=== PATIENT | male | born 1955 | race Caucasian/White ===

== ENCOUNTER 2017-03-05 21:17 | Inpatient (IN) | payer MEDICARE, OTHER ==
--- NOTE | ~2017-03-05 | DS ---
Discharge Summary [address] [address] NAME: NICO SINHA : 55 STATUS : DIS IN PAT#: [id number] AGE: 61 ADM/REG DATE : 03/05/17 MR#: [id number] REPORT SERV DATE: 03/09/17 DICTATED BY: KARISSA CARTER DATE: 03/08/17 REPORT STATUS : Draft TRANSCRIBED BY: MODL DATE: 03/08/17 ADMISSION DATE: 03/05/2017 DISCHARGE DATE: 03/08/2017 DISCHARGE DIAGNOSES: 1. Choledocholithiasis. 2. Possible cholangitis. 3. Uncontrolled hypertension. 4. Type 2 diabetes, new diagnosis with hemoglobin A1c of 6.8. 5. Chronic obstructive pulmonary disease. 6. Tobacco abuse. 7. Sleep apnea. 8. Distal left ureteral enhancing mass on CT scan with history of bladder cancer. 9. Schizophrenia and bipolar disorder, currently not on medical treatment with previous cognitive behavioral therapy. Symptoms controlled. 10.History of renal stones. 11.Goiter on CT. OPERATIONS AND PROCEDURES: ERCP, Dr. Cook 03/07/2017. PRESENT ILLNESS: This is a 61-year-old white male who was evaluated at [facility] the day of admission with epigastric pain after eating. His evaluation included a CT scan of the chest, abdomen, and pelvis. His chest CT did not show pulmonary emboli, aortic aneurysm, or dissection. Atherosclerotic disease was noted in the aorta and an enlarged thyroid gland was noted in the superior mediastinum. There was diffuse parenchymal emphysema. CT abdomen and pelvis demonstrated choledocholithiasis, nonobstructing left renal stones, and an abnormality in his distal left ureter. He was referred here for further evaluation. He was seen by Dr. Kade Shafer and admitted as described on admission history and physical examination. ADDITIONAL HISTORY: Per Dr. Shafer. PHYSICAL EXAMINATION: Per Dr. Shafer. ADMISSION LABORATORY: Per Dr. Shafer. HOSPITAL COURSE: He was admitted as described. He was given p.r.n. medications for blood pressure control. He was given p.r.n. medications for pain and nausea control. He was placed n.p.o. GI consultation was obtained. His hospitalist care was assumed by the undersigned. Surgical consultation was obtained, Discharge Summary [address] [address] NAME: NICO SINHA : 55 STATUS : DIS IN PAT#: [id number] AGE: 61 ADM/REG DATE : 03/05/17 MR#: [id number] REPORT SERV DATE: 03/09/17 DICTATED BY: KARISSA CARTER DATE: 03/08/17 REPORT STATUS : Draft TRANSCRIBED BY: MODL DATE: 03/08/17 and he was seen by Dr. Edouard. Antimicrobial therapy was initiated for possible cholangitis with his presentation. On 03/07/2017, he was taken to the GI lab by Dr. Cook where he underwent an ERCP. Findings were mildly dilated biliary system. There were multiple stones removed after sphincterotomy with balloon. There were no complications with this procedure and post procedure, he had no nausea, vomiting, and tolerated liquids well. His diet was advanced without symptoms. Dr. Edouard reviewed his studies. He recommended a cholecystectomy. It was felt this could be delayed per the patient's request. He was also seen by Dr. Bubba Coburn because of the left ureteral mass. Dr. Coburn felt he should have cysto, left RPG, and TURBT with possible need for distal ureterectomy. This will be followed up by Dr. Coburn in the outpatient setting. When seen by the undersigned on 03/08/2017, he was basically asymptomatic. There were no new findings on exam. His laboratory studies were reviewed. His bilirubin had fallen from 2.6 on 01/07/2017 to 1.2. Alkaline phosphatase 208 to 175, ALT 165 to 145, AST 135 to 88, and his lipase remained normal at 132 and 130. A hepatitis profile for A, B, and C was nonreactive, and his white count was normal at 7.8 and hemoglobin of 14.1. At this point in his hospitalization, it was felt he had achieved a level of improvement and stability where he could be safely discharged home to be seen in the outpatient setting by Dr. Edouard, Dr. Coburn, and his primary care physician, Sarah. He was asked to see Dr. Smith within the next week. He was asked to follow a low fat diet. Additional issues during his hospitalization included hypertension with systolic blood pressures as high as 211. Norvasc was initiated, and he will likely need additional antihypertensive therapy on followup. He also had some rhonchi and wheezing, which resolved with bronchodilator therapy. He did not smoke while hospitalized with the aid of a nicotine patch, which he plans to continue in the outpatient setting. DISCHARGE MEDICATIONS: Pending outpatient followup, Norvasc 5 mg twice daily, Habitrol patch 7 mg daily. Discharge time greater than 30 minutes. DD/MODL Discharge Summary [address] [address] NAME: NICO SINHA : 55 STATUS : DIS IN PAT#: [id number] AGE: 61 ADM/REG DATE : 03/05/17 MR#: [id number] REPORT SERV DATE: 03/09/17 DICTATED BY: KARISSA CARTER DATE: 03/08/17 REPORT STATUS : Draft TRANSCRIBED BY: JOSEFA DATE: 03/08/17 Karissa Carter M.D. / [id number] CC: Karissa Carter M.D. Roberto Wray M.D. William Young Jr., M.D. Kade Shafer M.D.
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
--- NOTE | ~2017-03-05 | OP ---
Record Of Operation [facility] [address] [place]. [address] NAME: NICO SINHA : 55 STATUS : ADM IN [facility]#: [id number] AGE: 61 ADM/REG DATE : 03/05/17 MR#: [id number] REPORT SERV DATE: 03/08/17 DICTATED BY: TREVER COOK III DATE: 03/07/17 REPORT STATUS : Draft TRANSCRIBED BY: MODL DATE: 03/07/17 DATE OF PROCEDURE: SURGEON: Trever Cook M.D. PROCEDURE: ERCP. ANESTHESIA: General anesthesia. DESCRIPTION OF PROCEDURE: After consent was obtained, the risks and benefits were explained to the patient. The patient was electively intubated and placed in the prone position through the use of a wedge on the fluoroscopy table in room 3 of the GI lab. A therapeutic duodenoscope was advanced blindly into the esophagus and down into the stomach through the pylorus and down the second portion of the duodenum. The papilla appeared normal. Cholangiogram noted a common channel, and there was a partial pancreatogram to the neck, but attempts to opacify were neither intended nor attempted. The bile duct had multiple filling defects and it was mildly dilated to 13 mm. A sphincterotomy was then performed. A lot of edema. The balloons were removed through the use of a 12-9 mm balloon. They were all calcified. Occlusion cholangiogram demonstrated no further stones. The air was suctioned. Scope was removed. ASSESSMENT: 1. Mildly dilated biliary system. 2. Multiple stones removed after sphincterotomy with balloon. ERI/JOSEFA Trever Cook III, M.D. / [id number] CC: Roberto Kyle M.D.
--- NOTE | ~2017-03-05 | CN ---
Consultation Report [facility] [address] [place]. [address] NAME: NICO SINHA : 55 STATUS : DIS IN PAT#: [id number] AGE: 61 ADM/REG DATE : 03/05/17 MR#: [id number] REPORT SERV DATE: 03/18/17 DICTATED BY: TREVER COOK III DATE: 03/06/17 REPORT STATUS : Draft TRANSCRIBED BY: JOSEFA DATE: 03/06/17 CONSULTATION DATE OF CONSULTATION: HISTORY OF PRESENT ILLNESS: Mr. Sinha is a 61-year-old white male, who is transferred from [facility] for evaluation of abdominal pain and abnormal CT scan. The patient had been doing fairly well, but he started developing some sternal pain and upper epigastric pain. He tried different things to try to getting feeling better, but he was concerned that it continued. No nausea, vomiting. He went to [facility]. They did a CT scan, and it showed that he had bile duct stones. His liver tests were mildly abnormal. [place] [address] and the evaluation was unremarkable for any heart problems. He was sent here for evaluation of gallstones. PAST MEDICAL HISTORY: Bladder cancer. PAST SURGICAL HISTORY: Ankle surgery, bladder cancer surgery. MEDICATIONS: None. ALLERGIES: PENICILLIN AND ASPIRIN. FAMILY HISTORY: Stroke, kidney disease, TB. SOCIAL HISTORY: He smokes. Denies alcohol. PHYSICAL EXAMINATION: GENERAL: A well-developed, well-nourished, white male with tattoos. HEENT: Atraumatic, normocephalic. Sclerae anicteric. Oropharynx is clean. CHEST: Clear to auscultation. CV: S1 and S2. ABDOMEN: Mildly protuberant, tattoos. LABORATORIES: Bilirubin 2.2. LFTs mildly elevated. White count 92790, hemoglobin 15.8. Sugar 136, alkaline phosphatase 158, ALT 129, AST 135. ASSESSMENT AND PLAN: 1. Abdominal pain with abnormal CT scan as noted, the patient with acute onset of abdominal pain with mildly elevated liver tests with an abnormal CT scan. We just have the report. It has not been officially read here. He reports, he has never had his gallbladder taken out. As such, we will do the following:. a. Review CT scan. b. Anticipate ERCP in the morning. c. Continue antibiotics. d. We will base any further needs on any other treatment based on his Consultation Report [place] [id number] [place] [address] NAME: NICO SINHA : 55 STATUS : DIS IN PAT#: [id number] AGE: 61 ADM/REG DATE : 03/05/17 MR#: [id number] REPORT SERV DATE: 03/18/17 DICTATED BY: TREVER COOK III DATE: 03/06/17 REPORT STATUS : Draft TRANSCRIBED BY: JOSEFA DATE: 03/06/17 response. ERI/JOSEFA Trever Cook III, M.D. / [id number] CC: Roberto Kyle M.D.
[2017-03-06 02:37] LABS: CPK 75 U/L (0-200); TROPONIN I <0.02 NG/ML (<0.05); ULTRASENSITIVE TSH 0.994 MCIU/ML (0.358-3.740)
[2017-03-06 02:42] LABS: CK-MB 1.6 NG/ML
[2017-03-06 08:46] LABS: BASOPHILS 0.2 %; BASOPHILS ABSOLUTE 0.02 10/3/uL (0.0-0.16); EOSINOPHILS 0.7 %; EOSINOPHILS ABSOLUTE 0.07 10/3/uL (0.0-0.53); HEMATOCRIT 46.2 % (40.0-51.0); HEMOGLOBIN 15.8 g/dL (13.6-17.8); IMMATURE GRANULOCYTES 0.2 %; IMMATURE GRANULOCYTES ABSOLUTE 0.02 10/3/uL (0.0-0.11); LYMPHOCYTES 13.8 %; LYMPHOCYTES ABSOLUTE 1.37 10/3/uL (0.67-4.30); MEAN CORPUS HGB CONC 34.2 g/dL (32.0-36.0); MEAN CORPUSCULAR HEMOGLOB 30.9 pg (26.0-34.0); MEAN CORPUSCULAR VOLUME 90.2 fL (80-100); MEAN PLATELET VOLUME 10.4 fL (9.2-13.0); MONOCYTES 7.3 %; MONOCYTES ABSOLUTE 0.73 10/3/uL (0.21-1.20); NEUTROPHILS 77.8 %; NEUTROPHILS ABSOLUTE 7.74 10/3/uL (2.02-8.40); PLATELET COUNT 208 10/3/uL (150-400); RBC DISTRIBUTION WIDTH 14.2 % (12.0-16.0); RED CELL COUNT 5.12 10/6/uL (4.7-6.1)
[2017-03-06 08:50] LABS: MANUAL DIFF NO %
[2017-03-06 09:03] LABS: A/G RATIO 0.8 (0.7-1.9); ALBUMIN 3.2 G/DL (3.5-5.0); ALKALINE PHOSPHATASE 158 U/L (45-117); BUN (BLOOD UREA NITROGEN) 8 MG/DL (6-23); CALCIUM, SERUM 9.6 MG/DL (8.5-10.4); CHLORIDE, SERUM 104 MMOL/L (96-112); CK-MB 1.5 NG/ML; CO2 (CARBON DIOXIDE) 27 MMOL/L (24-34); CPK 74 U/L (0-200); CREATININE 0.76 MG/DL (0.70-1.30); GFR AFRICAN AMERICAN 114 ML/MIN (>=60); GFR NON AFRICAN AMERICAN 98 ML/MIN (>=60); GLOBULIN 3.9 G/DL (2.5-4.1); GLUCOSE, SERUM 136 MG/DL (60-99); POTASSIUM, SERUM 3.8 MMOL/L (3.5-5.3); SGOT(AST) 135 U/L (5-40); SGPT(ALT) 129 U/L (5-65); SODIUM, SERUM 139 MMOL/L (135-148); TOTAL BILIRUBIN 2.2 MG/DL (0-1.2); TOTAL PROTEIN 7.1 G/DL (6.0-8.5); TROPONIN I <0.02 NG/ML (<0.05)
[2017-03-06] MEDS ORDERED: *DENIES (10:36)
[2017-03-07 06:49] LABS: BASOPHILS 0.2 %; BASOPHILS ABSOLUTE 0.02 10/3/uL (0.0-0.16); EOSINOPHILS 1.2 %; HEMOGLOBIN 15.8 g/dL (13.6-17.8); IMMATURE GRANULOCYTES 0.2 %; IMMATURE GRANULOCYTES ABSOLUTE 0.02 10/3/uL (0.0-0.11); LYMPHOCYTES 17.8 %; LYMPHOCYTES ABSOLUTE 1.46 10/3/uL (0.67-4.30); MANUAL DIFF NO %; MEAN CORPUS HGB CONC 34.3 g/dL (32.0-36.0); MEAN CORPUSCULAR HEMOGLOB 31.2 pg (26.0-34.0); MEAN CORPUSCULAR VOLUME 90.7 fL (80-100); MEAN PLATELET VOLUME 10.7 fL (9.2-13.0); MONOCYTES 7.9 %; MONOCYTES ABSOLUTE 0.65 10/3/uL (0.21-1.20); NEUTROPHILS 72.7 %; NEUTROPHILS ABSOLUTE 5.93 10/3/uL (2.02-8.40); PLATELET COUNT 199 10/3/uL (150-400); RBC DISTRIBUTION WIDTH 14.8 % (12.0-16.0); RED CELL COUNT 5.07 10/6/uL (4.7-6.1); WHITE BLOOD CELLS 8.2 10/3/uL (4.5-10.5)
[2017-03-07 06:55] LABS: INTERNATIONAL NORMAL RATI 1.1 UNITS (-)
[2017-03-07 07:02] LABS: A/G RATIO 0.8 (0.7-1.9); ALBUMIN 3.2 G/DL (3.5-5.0); ALKALINE PHOSPHATASE 208 U/L (45-117); BUN (BLOOD UREA NITROGEN) 7 MG/DL (6-23); CALCIUM, SERUM 10.1 MG/DL (8.5-10.4); CHLORIDE, SERUM 108 MMOL/L (96-112); CO2 (CARBON DIOXIDE) 22 MMOL/L (24-34); CREATININE 0.74 MG/DL (0.70-1.30); GAMMA GT 836 U/L (5-85); GFR AFRICAN AMERICAN 115 ML/MIN (>=60); GFR NON AFRICAN AMERICAN 100 ML/MIN (>=60); GLOBULIN 3.9 G/DL (2.5-4.1); GLUCOSE, SERUM 113 MG/DL (60-99); POTASSIUM, SERUM 4.1 MMOL/L (3.5-5.3); SGOT(AST) 135 U/L (5-40); SGPT(ALT) 165 U/L (5-65); SODIUM, SERUM 140 MMOL/L (135-148); TOTAL BILIRUBIN 2.6 MG/DL (0-1.2); TOTAL PROTEIN 7.1 G/DL (6.0-8.5); TROPONIN I 0.02 NG/ML (<0.05)
[2017-03-08 03:16] LABS: ASCORBIC ACID (UR NOT ORDER) NEG (NEG); BILIRUBIN, URINE NEGATIVE (NEG); KETONE, URINE NEGATIVE (NEG); LEUKOCYTE ESTERASE(NOT OR NEG (NEG); WBC (NOT ORDERED) (RFLEX) 1 (0-5)
[2017-03-08 05:39] LABS: BASOPHILS 0.1 %; BASOPHILS ABSOLUTE 0.01 10/3/uL (0.0-0.16); EOSINOPHILS 1.3 %; HEMATOCRIT 42.4 % (40.0-51.0); HEMOGLOBIN 14.1 g/dL (13.6-17.8); IMMATURE GRANULOCYTES 0.3 %; IMMATURE GRANULOCYTES ABSOLUTE 0.02 10/3/uL (0.0-0.11); LYMPHOCYTES 16.9 %; LYMPHOCYTES ABSOLUTE 1.32 10/3/uL (0.67-4.30); MEAN CORPUS HGB CONC 33.3 g/dL (32.0-36.0); MEAN CORPUSCULAR HEMOGLOB 30.4 pg (26.0-34.0); MEAN CORPUSCULAR VOLUME 91.4 fL (80-100); MEAN PLATELET VOLUME 10.4 fL (9.2-13.0); MONOCYTES 7.9 %; MONOCYTES ABSOLUTE 0.62 10/3/uL (0.21-1.20); NEUTROPHILS 73.5 %; NEUTROPHILS ABSOLUTE 5.75 10/3/uL (2.02-8.40); PLATELET COUNT 188 10/3/uL (150-400); RED CELL COUNT 4.64 10/6/uL (4.7-6.1); WHITE BLOOD CELLS 7.8 10/3/uL (4.5-10.5)
[2017-03-08 05:43] LABS: MANUAL DIFF NO %
[2017-03-08 05:47] LABS: A/G RATIO 0.9 (0.7-1.9); BUN (BLOOD UREA NITROGEN) 8 MG/DL (6-23); CALCIUM, SERUM 9.4 MG/DL (8.5-10.4); CHLORIDE, SERUM 106 MMOL/L (96-112); CO2 (CARBON DIOXIDE) 23 MMOL/L (24-34); CREATININE 0.83 MG/DL (0.70-1.30); GFR AFRICAN AMERICAN 110 ML/MIN (>=60); GFR NON AFRICAN AMERICAN 95 ML/MIN (>=60); GLOBULIN 3.5 G/DL (2.5-4.1); GLUCOSE, SERUM 121 MG/DL (60-99); POTASSIUM, SERUM 3.4 MMOL/L (3.5-5.3); SGOT(AST) 88 U/L (5-40); SGPT(ALT) 145 U/L (5-65); SODIUM, SERUM 140 MMOL/L (135-148); TOTAL PROTEIN 6.5 G/DL (6.0-8.5)
[2017-03-08 05:58] LABS: ALKALINE PHOSPHATASE 175 U/L (45-117); TOTAL BILIRUBIN 1.2 MG/DL (0-1.2)
[2017-03-08 11:48] LABS: HEPATITIS B SURFACE ANTIGEN NON-REACTIVE (NON-REACT)
[2017-03-08 12:14] LABS: HEPATITIS C ANTIBODY NON-REACTIVE (NON-REACT)
[2017-03-08 12:15] LABS: HEPATITIS B CORE AB IGM NON-REACTIVE (NON-REAC)
[2017-03-08 12:16] LABS: HEP A ANTIBODY IGM NON-REACTIVE (NON-REACT)
[2017-03-08] MEDS ORDERED: NORV5 PO (15:16)
[2017-03-08] MEDS ORDERED: HABIT7 TOP (15:17)
[2017-03-19] MEDS ORDERED: T PO (17:13)
[2017-03-31] MEDS ORDERED: PREV30 PO (16:22)
[2017-03-31] MEDS ORDERED: ZESTRIL20 MG PO (16:22)
[2017-03-31] MEDS ORDERED: GLUCOTROL5 PO (16:23)
[2017-03-31] MEDS ORDERED: VENTOLIN HFA INH (16:40)
[2017-04-02] MEDS ORDERED: PRAVAC PO (15:55)
== END 2017-03-08 15:55 | disposition home or self-care (01) | DRG 445 ==
LOC: 6NO 21:17
PROVIDERS: Internal Medicine; Internal Medicine Gastroenterology; Nurse Practitioner Family
PROC: 0FC98ZZ Extirpation of Matter from Common Bile Duct, Via Natural or Artificial Opening Endoscopic (ICD-10-PCS; principal; 2017-03-07 10:27)
PROC: 0F798ZZ Dilation of Common Bile Duct, Via Natural or Artificial Opening Endoscopic (ICD-10-PCS; 2017-03-07 10:27)
DX: K80.30 Calculus of bile duct with cholangitis, unspecified, without obstruction (principal); F20.9 Schizophrenia, unspecified; I10 Essential (primary) hypertension; F17.210 Nicotine dependence, cigarettes, uncomplicated; E11.9 Type 2 diabetes mellitus without complications; J44.9 Chronic obstructive pulmonary disease, unspecified; I70.0 Atherosclerosis of aorta; G47.33 Obstructive sleep apnea (adult) (pediatric); E04.9 Nontoxic goiter, unspecified; F31.9 Bipolar disorder, unspecified; Z85.51 Personal history of malignant neoplasm of bladder; Z82.3 Family history of stroke; Z87.442 Personal history of urinary calculi
CPT/HCPCS: 74330; 76700; 80053; 80074; 81001; 82550; 82553; 82962; 82977; 83036; 83690; 84439; 84443; 84484; 85025; 85610; 88112; 94640; A9270-GY; C9113; J0330; J0360; J1956; J2405; J2550; J2765; Q9967

== ENCOUNTER 2017-03-26 06:06 | Day surgery (SDC) | payer MEDICARE, OTHER ==
[2017-03-23 10:55] LABS: HEMATOCRIT 44.4 % (40.0-51.0); HEMOGLOBIN 15.3 g/dL (13.6-17.8)
[2017-03-23 11:11] LABS: BUN (BLOOD UREA NITROGEN) 15 MG/DL (6-23); CALCIUM, SERUM 10.1 MG/DL (8.5-10.4); CHLORIDE, SERUM 107 MMOL/L (96-112); CO2 (CARBON DIOXIDE) 28 MMOL/L (24-34); CREATININE 0.87 MG/DL (0.70-1.30); GFR AFRICAN AMERICAN 108 ML/MIN (>=60); GFR NON AFRICAN AMERICAN 93 ML/MIN (>=60); GLUCOSE, SERUM 213 MG/DL (60-99); POTASSIUM, SERUM 4.4 MMOL/L (3.5-5.3); SODIUM, SERUM 142 MMOL/L (135-148)
[2017-03-23 12:02] LABS: ASCORBIC ACID (UR NOT ORDER) NEG (NEG); BILIRUBIN, URINE NEGATIVE (NEG); KETONE, URINE NEGATIVE (NEG); LEUKOCYTE ESTERASE(NOT OR TRACE (NEG); WBC (NOT ORDERED) (RFLEX) 8 (0-5)
--- NOTE | ~2017-03-26 | OP ---
Record Of Operation [facility] [address] [place]. [address] NAME: NICO SINHA : 55 STATUS : [facility]#: [id number] AGE: 61 ADM/REG DATE : 03/26/17 MR#: [id number] REPORT SERV DATE: 03/26/17 DICTATED BY: BUBBA COBURN JR. DATE: 03/26/17 REPORT STATUS : Draft TRANSCRIBED BY: MODDarnell DATE: 03/26/17 DATE OF PROCEDURE: 03/26/2017 SURGEON: Bubba Coburn M.D. PREOPERATIVE DIAGNOSIS: Left ureteral tumor. POSTOPERATIVE DIAGNOSIS: Left ureteral tumor. PROCEDURES PERFORMED: Cystoscopy, left retrograde pyelogram, right retrograde pyelogram, and examination under anesthesia. COMPLICATIONS: None. CONSULTATIONS: None. ANESTHESIA: General with laryngeal mask airway. SPECIMENS: None. DRAINS: None. ESTIMATED BLOOD LOSS: None. INDICATION: Mr. Sinha is a 61-year-old gentleman who has a history of TCC of the left trigone. He was admitted to the hospital recently, and on CT scan, he was noted to have an enhancing mass at the area of the left trigone, which looked to be involving the left ureter. He had no hydronephrosis on that side and it did not appear to be obstructed. He comes today for further diagnostic testing to evaluate the extent of this enhancing mass, possible TURBT, and to plan further treatment. PROCEDURE IN DETAIL: After the patient was identified, and proper informed consent was obtained. He was taken to the operating room. General anesthesia was performed without complication using a laryngeal mask airway. He was then prepped and draped in the normal sterile fashion in the lithotomy position. Cystoscopic examination of the urethra revealed a normal penile and bulbous urethra. The bladder mucosa was examined. The tumor on the left trigone was again noted and appeared to be coming from the left ureteral orifice. During peristalsis, you could see some the tumor being pushed out from the ureteral orifice, and then when the ureter retracted, the tumor would be sucked back into the ureteral orifice. The rest of the bladder mucosa appeared normal. The right ureteral orifice was normal. Retrograde pyelograms were performed bilaterally. The right side first. The right side retrograde showed normal collecting system without filling defect or evidence of obstruction, or hydronephrosis. On the left side, the ureter was normal all the way down to the ureterovesical junction. The tumor appeared to be only in the transmural portion of the ureter. The rest of the ureter was normal in course and caliber. The collecting system was normal without hydronephrosis or filling defect. At that point, I considered TURBT of the Record Of Operation [facility] [address] [place]. [address] NAME: NICO SINHA : 55 STATUS : [facility]#: [id number] AGE: 61 ADM/REG DATE : 03/26/17 MR#: [id number] REPORT SERV DATE: 03/26/17 DICTATED BY: BUBBA COBURN JR. DATE: 03/26/17 REPORT STATUS : Draft TRANSCRIBED BY: JOSEFA DATE: 03/26/17 ureteral orifice; however, this had been done once before by Dr. Luna in [place], [place], with recurrence within a very short period of time. I felt he would be better served with a distal ureterectomy and partial cystectomy, and I did not wish to partially resect the tumor as I was concerned about bleeding and not being able to get the tumor to stop. He has not had any hematuria grossly since this recurrence. I simply drained the bladder. The patient had a bimanual exam. I did not note any masses within the pelvis. I will discuss with him the option of transvesical distal ureterectomy with reimplantation. LEONARDO/JOSEFA Bubba Coburn Jr., M.D. / [id number] CC: Bubba Coburn Jr., M.D.
[~2017-03-26 06:06] MED LIST: *DENIES; HABIT7 TOP; NORV5 PO; T PO
[2017-03-31] MEDS ORDERED: ZESTRIL20 MG PO (16:22)
[2017-03-31] MEDS ORDERED: PREV30 PO (16:22)
[2017-03-31] MEDS ORDERED: GLUCOTROL5 PO (16:23)
[2017-03-31] MEDS ORDERED: VENTOLIN HFA INH (16:40)
[2017-04-02] MEDS ORDERED: PRAVAC PO (15:55)
== END 2017-03-26 12:17 | disposition home or self-care (01) ==
LOC: SDC 06:06
PROVIDERS: Urology
PROC: BT14ZZZ Fluoroscopy of Kidneys, Ureters and Bladder (ICD-10-PCS; principal; 2017-03-26 07:45)
DX: D41.22 Neoplasm of uncertain behavior of left ureter (principal); F31.9 Bipolar disorder, unspecified; E04.9 Nontoxic goiter, unspecified; M19.90 Unspecified osteoarthritis, unspecified site; J44.9 Chronic obstructive pulmonary disease, unspecified; I10 Essential (primary) hypertension; I25.2 Old myocardial infarction; R01.1 Cardiac murmur, unspecified; F17.210 Nicotine dependence, cigarettes, uncomplicated; Z85.51 Personal history of malignant neoplasm of bladder; Z88.0 Allergy status to penicillin; Z88.6 Allergy status to analgesic agent; Z91.018 Allergy to other foods; Z79.899 Other long term (current) drug therapy
CPT/HCPCS: 74420; 80048; 81001; 82962; 85014; 85018; 93005; A9270-GY; C1758; C1769; J0330; J2250; J2405; J3010; Q9967

== ENCOUNTER 2017-04-06 10:47 | Inpatient (IN) | payer MEDICARE, OTHER ==
[2017-04-02 16:39] LABS: ASCORBIC ACID (UR NOT ORDER) NEG (NEG); BILIRUBIN, URINE NEGATIVE (NEG); KETONE, URINE NEGATIVE (NEG); LEUKOCYTE ESTERASE(NOT OR NEG (NEG); WBC (NOT ORDERED) (RFLEX) 1 (0-5)
--- NOTE | ~2017-04-06 | OP ---
Record Of Operation [facility] [address] [place]. [address] NAME: NICO SINHA : 55 STATUS : ADM IN [facility]#: [id number] AGE: 61 ADM/REG DATE : 04/06/17 MR#: [id number] REPORT SERV DATE: 04/06/17 DICTATED BY: BUBBA COBURN JR. DATE: 04/06/17 REPORT STATUS : Draft TRANSCRIBED BY: MODL DATE: 04/06/17 DATE OF PROCEDURE: 04/06/2017 SURGEON: Bubba Coburn M.D. PREOPERATIVE DIAGNOSIS: Distal left ureteral tumor. POSTOPERATIVE DIAGNOSIS: Distal left ureteral tumor.. PROCEDURE PERFORMED: Partial cystectomy, distal ureterectomy, and psoas hitch reimplant. COMPLICATIONS: None. CONSULTATIONS: None. ANESTHESIA: General with an endotracheal tube. SPECIMEN: Distal right ureter and partial cystectomy. DRAINS: A 20-Indonesian Rodgers catheter and 15-Indonesian Leodan drain. ESTIMATED BLOOD LOSS: 300 mL. INDICATION: Mr. 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 He has had previous resection of the ureteral orifice and has had recurrence in the distal ureter. On retrograde pyelogram, the tumor was confined to the distal ureter and a distal ureterectomy and partial cystectomy seemed the best method of treatment of this malignancy. PROCEDURE IN DETAIL: After the patient was identified and proper informed consent was obtained, he was taken to the operating room. General anesthesia was performed without complication using an endotracheal tube. He was then prepped and draped in normal sterile fashion in the supine position overlying the kidney rest, with the kidney rest raised in the table slightly flexed. A midline incision from below the umbilicus down to the pubic symphysis was made and then the pre-peritoneal space was developed along with the space of Retzius bilaterally. A Bookwalter retractor was put in place and a vertical incision in the central portion of the bladder was made from the dome down to approximately 3 cm from the bladder neck. Using Ray-Tecs and a malleable retractor, I retracted the bladder dome superiorly to put the base of the bladder on a mild stretch. The ureteral orifice as well as the tumor were noted. I then placed two-stay sutures and each side of the bladder incision to hold the bladder open with a Rodgers catheter in place. I then circumferentially incised the bladder around the ureteral tumor with approximately 1 cm margin. The ureteral orifice was somewhat lateral come compared to its previous location from its prior resection was not really very close to the right ureteral orifice. A larger margin could be taken safely once I had incised the bladder mucosa using the cutting current with the needle-tip Bovie. I then used a right angle retractor and cautery to mobilize the transmural portion Record Of Operation [facility] [address] [place]. [address] NAME: NICO SINHA : 55 STATUS : ADM IN PAT#: [id number] AGE: 61 ADM/REG DATE : 04/06/17 MR#: [id number] REPORT SERV DATE: 04/06/17 DICTATED BY: BUBBA COBURN JR. DATE: 04/06/17 REPORT STATUS : Draft TRANSCRIBED BY: MODDarnell DATE: 04/06/17 of the ureter. Once I had the ureter completely mobilized through the full-thickness of the bladder. I advanced the ureter and attached its anterior surface to the superior portion of my prior bladder incision and then transected the ureter at that level. Frozen section margin of the ureter revealed that there was positive or very close it. At that point, I did not feel that a transvesical reimplantation would be possible due to the fact that I had already mobilized the ureter as much as possible. Two get my current margin, I then increased size in my incision superiorly just above the umbilicus. I attempted to mobilize the ureter in the retroperitoneum, however, this was quite difficult due to the patient's size and getting proper exposure of the distal ureter. I then incised the perineum and reflected the colon medially. I was able to identify the ureter. I then mobilized the ureter as high up as I could through that incision and attached the ureter from the bladder and then transected the ureter approximately 2 cm above my prior transection. The specimen, at that point, grossly did not appear to have any tumor and frozen section of the margin was negative for transitional cell carcinoma or carcinoma in situ. At that point, I was unable to get the ureter down to my prior incision and I had some difficulties due to the patient's body habitus bringing the ureter down in a non-tension type anastomosis. I performed a psoas hitch of the bladder to the psoas muscle using a #0 Vicryl suture. I then brought the ureter down to the bladder and noted the most tension-free location for reimplantation. I made an incision in the bladder using the cutting current of the Bovie and brought the ureter through the incision into the bladder. I spatulated the ureter at its 12 o'clock position and reanastomosed the ureter with a nice mucosa to mucosa and serosa to serosa anastomosis using a 4-0 Vicryl suture in an interrupted fashion. The double-J stent was then deployed over the guidewire 6 x 24 cm in length. I then closed my original bladder defect from the partial cystectomy using two layered closure of 2-0 Vicryl suture in the serosa and the detrusor muscle and this was a running suture, and then I used a 3-0 chromic suture in a locking fashion to close the mucosa. I then closed my cystotomy in a similar fashion, first using a 3-0 chromic suture in a running fashion which was locking and then a 2-0 Vicryl in a nonlocking running fashion to close the detrusor and serosa. Once I had a good watertight closure of the bladder, I checked once again for the tension-free anastomosis on the ureter. I irrigated the retroperitoneum with sterile saline and placed a AMI drain through the left lower quadrant into the preperitoneal space. I then closed the fascia using a 0 looped PDS suture with some interrupted #1 Vicryl [id number] sutures to hold a nice none fit to the fascia. I then irrigated the fascial wound and closed in two layers, a one 3-0 Vicryl suture in the Marcelo's fascia and a 4-0 Monocryl on the skin. Rodgers level was left to gravity drainage. The AMI drain was placed to bulb suction. The patient was awakened in the operating room, transferred to the postanesthesia care in stable condition. LEONARDO/JOSEFA Bubba Coburn Jr., M.D. / [id number] [facility] [address] [place]. [address] NAME: NICO SINHA : 55 STATUS : ADM IN PAT#: [id number] AGE: 61 ADM/REG DATE : 04/06/17 MR#: [id number] REPORT SERV DATE: 04/06/17 DICTATED BY: BUBBA COBURN JR. DATE: 04/06/17 REPORT STATUS : Draft TRANSCRIBED BY: MODL DATE: 04/06/17 CC: Bubba Coburn Jr., M.D.
--- NOTE | ~2017-04-06 | DS ---
Discharge Summary [facility] [address] [place]. [address] NAME: NICO SINHA : 55 STATUS : DIS IN PAT#: [id number] AGE: 61 ADM/REG DATE : 04/06/17 MR#: [id number] REPORT SERV DATE: 04/20/17 DICTATED BY: BUBBA COBURN JR. DATE: 04/19/17 REPORT STATUS : Draft TRANSCRIBED BY: JOSEFA DATE: 04/19/17 Data Collection from hospitalization DISCHARGE DIAGNOSIS(ES): 1. Distal left ureteral tumor. 2. Hypertension. 3. Otq-cnidkkm-ojbrbkjzz diabetes mellitus. 4. Chronic obstructive pulmonary disease. 5. Sleep apnea. CONSULTATIONS: None. PROCEDURES PERFORMED: Partial cystectomy, distal ureterectomy, and psoas hitch reimplant, 04/06/2017. PATHOLOGY: Left distal ureter and partial bladder segmental resection; noninvasive urothelial carcinoma with an inverted growth pattern, high-grade, proximal margin involved; left distal ureter re-excision negative for carcinoma, final margin negative. MEDICATIONS: Glucotrol 5 mg before breakfast, Zestril 20 mg twice daily, Habitrol 7 mg topically daily, Pravachol 20 mg at bedtime, Ventolin HFA one puff every 4 hours as needed, Tylenol 650 mg every four hours as needed, and Dilaudid 2 mg every four hours as needed. CONDITION AT DISCHARGE: Upon discharge, he did appear to be doing well and had no complaints. DISPOSITION: He was discharged home to continue a GI soft diet with activity as tolerated. He was to follow up with me in the office on 04/29/2017, have a cystogram on 04/15/2017, follow up with his primary care physician as needed. Home health care was in place upon discharge. 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 He had had previous resection of the ureteral orifice and had had recurrence in the distal ureter. On retrograde pyelogram, the tumor had confined to the distal ureter and a distal ureterectomy and partial cystectomy seemed to be the best method of treatment of this malignancy. This had been discussed with the patient. He was agreeable to proceed. He was admitted for surgery and further treatment. Upon admission to the hospital, he had been taken to the operating room where he did undergo the above procedure. He had tolerated this well and was transferred to the recovery room. On postop day #1, he was afebrile, and his vital signs were stable. He was doing well postoperatively. He did have a good urinary output. His creatinine was at 0.91, hemoglobin 14. He was on a full liquid diet. On postop day #2, he had complaints of abdominal spasms and a chronic cough. He was afebrile and his vital signs were stable. His abdomen was noted to be mildly distended. His urine was noted to be pink. His cough and spasms were to be treated, and he was encouraged to ambulate. On postop day #3, he was noted to be feeling better, and his ambulation was improving. His cough was also improving. He was to have a cystogram in 10 days, and the Rodgers catheter was to be removed then if the CT was negative. He had been given a Dulcolax suppository. His diet was being slowly advanced. On postop day #4, he did continue to do Discharge Summary [address] [address] NAME: NICO SINHA : 55 STATUS : DIS IN PAT#: [id number] AGE: 61 ADM/REG DATE : 04/06/17 MR#: [id number] REPORT SERV DATE: 04/20/17 DICTATED BY: BUBBA COBURN JR. DATE: 04/19/17 REPORT STATUS : Draft TRANSCRIBED BY: JOSEFA DATE: 04/19/17 well and had been ambulating. He did remain in stable condition, and he had continued to slowly improve. He was noted to be breathing better, and as he continued to do well, he was then discharged on 04/12/2017 with the above instructions. Information collected by: Ochoa Varela. I submit the above information as my discharge summary. JOHNY/JOSEFA Bubba Coburn Jr., M.D. / [id number] CC: Roberto Oates Jr.
[~2017-04-06 10:47] MED LIST changes: +GLUCOTROL5 PO; +PRAVAC PO; +PREV30 PO; +VENTOLIN HFA INH; +ZESTRIL20 MG PO
[2017-04-06 17:52] LABS: BASOPHILS 0.1 %; BASOPHILS ABSOLUTE 0.02 10/3/uL (0.0-0.16); EOSINOPHILS 0 %; HEMATOCRIT 40.9 % (40.0-51.0); HEMOGLOBIN 13.8 g/dL (13.6-17.8); IMMATURE GRANULOCYTES 0.3 %; IMMATURE GRANULOCYTES ABSOLUTE 0.06 10/3/uL (0.0-0.11); LYMPHOCYTES 3.8 %; MEAN CORPUS HGB CONC 33.7 g/dL (32.0-36.0); MEAN CORPUSCULAR HEMOGLOB 30.5 pg (26.0-34.0); MEAN CORPUSCULAR VOLUME 90.5 fL (80-100); MEAN PLATELET VOLUME 10.7 fL (9.2-13.0); MONOCYTES 1.2 %; MONOCYTES ABSOLUTE 0.22 10/3/uL (0.21-1.20); NEUTROPHILS 94.6 %; NEUTROPHILS ABSOLUTE 17.65 10/3/uL (2.02-8.40); RBC DISTRIBUTION WIDTH 13.7 % (12.0-16.0); RED CELL COUNT 4.52 10/6/uL (4.7-6.1)
[2017-04-06 17:54] LABS: MANUAL DIFF NO %; PLATELET COUNT 281 10/3/uL (150-400); WHITE BLOOD CELLS 18.7 10/3/uL (4.5-10.5)
[2017-04-06 18:09] LABS: CHLORIDE, SERUM 106 MMOL/L (96-112); CREATININE 0.96 MG/DL (0.70-1.30); GFR AFRICAN AMERICAN 98 ML/MIN (>=60); GFR NON AFRICAN AMERICAN 85 ML/MIN (>=60); GLUCOSE, SERUM 197 MG/DL (60-99); POTASSIUM, SERUM 4.6 MMOL/L (3.5-5.3); SODIUM, SERUM 138 MMOL/L (135-148)
[2017-04-06 18:40] LABS: BUN (BLOOD UREA NITROGEN) 11 MG/DL (6-23); CALCIUM, SERUM 9.1 MG/DL (8.5-10.4); CO2 (CARBON DIOXIDE) 21 MMOL/L (24-34)
[2017-04-07 06:24] LABS: BASOPHILS 0 %; EOSINOPHILS 0 %; HEMATOCRIT 44.3 % (40.0-51.0); HEMOGLOBIN 14.9 g/dL (13.6-17.8); IMMATURE GRANULOCYTES 0.3 %; IMMATURE GRANULOCYTES ABSOLUTE 0.04 10/3/uL (0.0-0.11); LYMPHOCYTES 5.8 %; LYMPHOCYTES ABSOLUTE 0.85 10/3/uL (0.67-4.30); MANUAL DIFF NO %; MEAN CORPUS HGB CONC 33.6 g/dL (32.0-36.0); MEAN CORPUSCULAR HEMOGLOB 30.7 pg (26.0-34.0); MEAN CORPUSCULAR VOLUME 91.3 fL (80-100); MEAN PLATELET VOLUME 10.9 fL (9.2-13.0); MONOCYTES ABSOLUTE 0.88 10/3/uL (0.21-1.20); NEUTROPHILS 87.9 %; NEUTROPHILS ABSOLUTE 12.98 10/3/uL (2.02-8.40); PLATELET COUNT 275 10/3/uL (150-400); RBC DISTRIBUTION WIDTH 13.9 % (12.0-16.0); RED CELL COUNT 4.85 10/6/uL (4.7-6.1); WHITE BLOOD CELLS 14.8 10/3/uL (4.5-10.5)
[2017-04-07 06:34] LABS: BUN (BLOOD UREA NITROGEN) 13 MG/DL (6-23); CALCIUM, SERUM 9.5 MG/DL (8.5-10.4); CHLORIDE, SERUM 104 MMOL/L (96-112); CREATININE 0.91 MG/DL (0.70-1.30); GFR AFRICAN AMERICAN 105 ML/MIN (>=60); GFR NON AFRICAN AMERICAN 91 ML/MIN (>=60); POTASSIUM, SERUM 4.6 MMOL/L (3.5-5.3); SODIUM, SERUM 137 MMOL/L (135-148)
[2017-04-07 06:36] LABS: CO2 (CARBON DIOXIDE) 27 MMOL/L (24-34); GLUCOSE, SERUM 146 MG/DL (60-99)
[2017-04-12] MEDS ORDERED: DIL2TAB PO (09:19)
== END 2017-04-12 15:08 | disposition home or self-care (01) | DRG 655 ==
LOC: SDC/OF 10:47 → PACU 17:11 → 4SO 20:49
PROVIDERS: Urology
PROC: 0TBB0ZZ Excision of Bladder, Open Approach (ICD-10-PCS; principal; 2017-04-06 12:45)
PROC: 0TB60ZZ Excision of Right Ureter, Open Approach (ICD-10-PCS; principal; 2017-04-06 12:45)
PROC: 0T170ZB Bypass Left Ureter to Bladder, Open Approach (ICD-10-PCS; principal; 2017-04-06 12:45)
DX: C66.2 Malignant neoplasm of left ureter (principal); I10 Essential (primary) hypertension; G47.33 Obstructive sleep apnea (adult) (pediatric); E11.9 Type 2 diabetes mellitus without complications; F17.200 Nicotine dependence, unspecified, uncomplicated; J44.9 Chronic obstructive pulmonary disease, unspecified; Z88.8 Allergy status to other drugs, medicaments and biological substances; Z88.0 Allergy status to penicillin; F17.210 Nicotine dependence, cigarettes, uncomplicated; R05 Cough
CPT/HCPCS: 36415; 80048; 81001; 82962; 85025; 86850; 86900; 86901; 88307; 88331; 94640; A9270-GY; C1758; C1769; C2617; J0360; J0461; J1580; J1940; J2250; J2270; J2370; J2405; J2550; J2710; J3010; J3370; P9045